=== PATIENT | male | born 1995 ===

== ENCOUNTER 2017-01-30 01:55 | Emergency (ER) | payer SELFPAY ==
[2017-01-30 02:13] VITALS: BP 120/74; PULSE 65; RESP 17; TEMP 98.4; O2SAT 100
[2017-01-30] MEDS ORDERED: Sodium Chloride 0.9% 1,000 ML IV STA (02:26)
--- NOTE | 2017-01-30 02:46 | ED PDOC ---
HPI: Headache Time Seen by Provider: 01/30/17 02:10 Chief Complaint (Nursing): Abdominal Pain Chief Complaint (Provider): headache History Per: Patient History/Exam Limitations: no limitations Onset/Duration Of Symptoms: Hrs (5) Current Symptoms Are (Timing): Still Present Quality: "Pain" Associated Symptoms: Nausea, Vomiting Additional History Per: Patient Additional Complaint(s): 21 y/o male presents for eval of left-sided headache x 5 hours. Patient states symptoms started after he woke up from a nap, with associated nausea/vomiting, and feeling "off-balance" when walking. Denies fever, dizziness, vision changes , extremity numbness/weakness, neck pain, chest pain, shortness of breath, palpitations. No medications taken for pain relief thus far. Past Medical History Reviewed: Historical Data, Nursing Documentation, Vital Signs Vital Signs: Last Vital Signs Temp 98.4 F 01/30/17 02:08 Pulse 65 01/30/17 02:08 Resp 17 01/30/17 02:08 BP 120/74 01/30/17 02:08 Pulse Ox 100 01/30/17 02:08 - Medical History PMH: Bronchitis Denies: Asthma - Surgical History Surgical History: No Surg Hx - Family History Family History: States: Unknown Family Hx - Home Medications Home Medications: Ambulatory Orders Medication Instructions Recorded Acetaminophen with Codeine 1 each PO Q8 #14 tablet 12/31/15 [Tylenol with Codeine #3 Tablet] Acyclovir [Zovirax] 800 mg PO 5XD #35 tab 12/31/15 Benzonatate 200 mg PO TID PRN #20 capsule 02/03/16 Oseltamivir Phosphate [Tamiflu] 75 mg PO BID #10 tab 02/03/16 Acetaminophen [Acetaminophen Extra 2 tab PO Q6 PRN #24 tablet 07/01/16 Strength] Albuterol HFA [Ventolin HFA 90 2 puff IH [id number] PRN #1 inhaler 07/01/16 mcg/actuation (8 g)] Azithromycin [Zithromax] 1 tab PO DAILY #6 tab 07/01/16 Ibuprofen [Motrin] 600 mg PO Q8 PRN #21 tab 07/01/16 Promethazine/Codeine 5 ml PO Q12 PRN #100 ml 07/01/16 [Codeine/Promethazine 10 MG/5 Ml-6.25 MG/5 Ml] Naproxen [Naprosyn] 500 mg PO Q12 PRN #20 tablet 01/30/17 Ondansetron [Zofran] 4 mg PO Q8H PRN #10 tab 01/30/17 - Allergies Allergies/Adverse Reactions: Allergies Allergy/AdvReac Type Severity Reaction Status Date / Time No Known Allergies Allergy Verified 01/19/17 01:39 Review of Systems ROS Statement: Except As Marked, All Systems Reviewed And Found Negative Gastrointestinal: Positive for: Nausea, Vomiting Neurological: Positive for: Headache Physical Exam - Reviewed Nursing Documentation Reviewed: Yes Vital Signs Reviewed: Yes - Physical Exam Appears: Positive for: Well, Non-toxic, No Acute Distress Head Exam: Positive for: ATRAUMATIC, NORMAL INSPECTION, NORMOCEPHALIC Skin: Positive for: Normal Color Eye Exam: Positive for: Normal appearance, EOMI, PERRL ENT: Positive for: Normal ENT Inspection Cardiovascular/Chest: Positive for: Regular Rate, Rhythm Respiratory: Positive for: Normal Breath Sounds Gastrointestinal/Abdominal: Positive for: Normal Exam Back: Positive for: Normal Inspection Extremity: Positive for: Normal ROM Neurologic/Psych: Positive for: Alert, Oriented - Laboratory Results Result Diagrams: 01/30/17 03:07 01/30/17 03:07 - ECG O2 Sat by Pulse Oximetry: 100 - Progress ED Course And Treament: labs, CT head, IV fluids, IV zofran, IV reglan, PO tylenol EXAM: CT Head Without Intravenous Contrast. CLINICAL HISTORY: 21 years old, male; Pain; Headache; Additional info: Headache, vomiting TECHNIQUE: Axial computed tomography images of the head/brain without intravenous contrast. This CT exam was performed using one or more of the following dose reduction techniques: automated exposure control, adjustment of the mA and/or kV according to patient size, and/or use of iterative reconstruction technique. Coronal and sagittal reformatted images were created and reviewed. EXAM DATE/TIME: 01/30/2017 2:26 AM COMPARISON: No relevant prior studies available. FINDINGS: No intracranial hemorrhage. No intracranial edema. No evidence of infarct. The sinuses and mastoid air cells are clear. IMPRESSION: No acute findings. On re-eval, patient sleeping. Upon awakening, states headache and nausea resolved. Tolerating PO. Patient educated on findings, discharged with rx Naproxen, Zofran. Advised follow up PMD 2-3 days. Return to ED for worsening/concerning symptoms. Disposition - Clinical Impression Clinical Impression: Headache - Patient ED Disposition Is Patient to be Admitted: No Counseled Patient/Family Regarding: Studies Performed, Diagnosis, Need For Followup, Rx Given - Disposition Referrals: [facility] [Outside] Disposition: Routine/Home Disposition Time: 04:28 Condition: IMPROVED Prescriptions: Naproxen [Naprosyn] 500 mg PO Q12 PRN #20 tablet PRN Reason: Pain, Moderate (4-7) Ondansetron [Zofran] 4 mg PO Q8H PRN #10 tab PRN Reason: Nausea/Vomiting Instructions: Acute Headache (ED)
[2017-01-30 03:15] LABS: BASO % 0.2 % (0.0-2.0); CHLORIDE 102 mmol/L (98-107); EOS % 0.3 % (0.0-4.0); HEMATOCRIT 39.2 % (35.0-51.0); LYMPH # 1.9 K/uL (1.0-4.3); LYMPH % 13.7 % (20.0-40.0); MEAN CELL VOLUME 82.9 fl (80.0-94.0); MEAN CORPUSCULAR HEMOGLOBIN 28.1 pg (27.0-31.0); MEAN CORPUSCULAR HGB CONC 33.8 g/dL (33.0-37.0); MEAN PLATELET VOLUME 8.5 fl (7.2-11.7); MONO # 0.6 K/uL (0.0-0.8); MONO % 4.6 % (0.0-10.0); NEUT % 81.2 % (50.0-75.0); NRBC % 0.1 % (0.0-0.0); POTASSIUM 4.1 MMOL/L (3.6-5.0); SODIUM 141 mmol/l (132-148); WHITE BLOOD COUNT 13.6 K/uL (4.8-10.8)
[2017-01-30 03:17] LABS: BILIRUBIN,TOTAL 0.8 mg/dl (0.2-1.3); GFR AFRICAN-AMERICAN > 60
[2017-01-30 03:18] LABS: ALB/GLOB RATIO 1.7 (1.0-2.1); ALKALINE PHOSPHATASE 101 U/L (38-126); ALT/SGPT 26 U/L (21-72); AST/SGOT 30 U/L (17-59); BLOOD UREA NITROGEN 16 mg/dl (9-20); CARBON DIOXIDE 26 mmol/L (22-30); GLUCOSE,RANDOM 110 mg/dL (75-110); TOTAL PROTEIN 7.6 G/DL (6.3-8.2)
[2017-01-30 03:19] LABS: CALCIUM 9.5 mg/dL (8.4-10.2)
--- NOTE | 2017-01-30 03:40 | CT ---
EXAM: CT Head Without Intravenous Contrast. CLINICAL HISTORY: 21 years old, male; Pain; Headache; Additional info: Headache, vomiting TECHNIQUE: Axial computed tomography images of the head/brain without intravenous contrast. This CT exam was performed using one or more of the following dose reduction techniques: automated exposure control, adjustment of the mA and/or kV according to patient size, and/or use of iterative reconstruction technique. Coronal and sagittal reformatted images were created and reviewed. EXAM DATE/TIME: 01/30/2017 2:26 AM COMPARISON: No relevant prior studies available. FINDINGS: No intracranial hemorrhage. No intracranial edema. No evidence of infarct. The sinuses and mastoid air cells are clear. IMPRESSION: No acute findings.
== END 2017-01-30 04:34 | disposition home or self-care (01) ==
LOC: H.ER 01:55
DX: R51 Headache (principal); R11.10 Vomiting, unspecified
CPT/HCPCS: 70450; 80053; 85025; 99282; J2405; J2765; J7040